=== PATIENT | male | born 1970 | race Caucasian/White ===

== ENCOUNTER 2024-01-18 06:20 | Day surgery (SDC) | payer BC, SELFPAY ==
[2024-01-18 11:16] VITALS: BMI 28.3
[2024-01-18 11:17] VITALS: BMI 28.3
[2024-01-18 11:30] VITALS: BP 130/81
[2024-01-18 14:54] VITALS: BP 108/68
[2024-01-18 15:00] VITALS: BP 114/70
[2024-01-18 15:15] VITALS: BP 122/78
[2024-01-18 15:30] VITALS: BP 114/72
== END 2024-01-18 15:40 | disposition home or self-care (01) ==
LOC: SDS 06:20
PROVIDERS: ATTENDING PHYSICIAN Internal Medicine Gastroenterology
DX: K22.89 Other specified disease of esophagus (principal); K22.82 Esophagogastric junction polyp; K31.89 Other diseases of stomach and duodenum; K31.7 Polyp of stomach and duodenum
CPT/HCPCS: 43251; 43259; 88305

== ENCOUNTER 2024-04-03 22:00 | Emergency (ER) | payer BC, SELFPAY ==
[2024-04-03 22:02] VITALS: BP 138/96
[2024-04-04] MEDS: PERCOCET 5/325 1 TABLET PO (00:32)
[2024-04-04] MEDS: DECADRON 10 MG IV (00:41)
[2024-04-04] MEDS: TORADOL 15 MG IV (00:42)
[2024-04-04] MEDS: VALIUM INJECTION 2 MG IV (00:42)
--- NOTE | 2024-04-04 01:05 | ED.GENMED ---
History of Present Illness
General
Chief Complaint: Back Pain
Source: patient and spouse
Exam Limitations: none
Time Seen by Provider: 04/03/24 23:54
Nursing documentation reviewed up to this point in time: agreed with
History of Present Illness
History of Present Illness:
Patient with history of chronic intermittent low back pain, presents to ED secondary to continual right right lower back pain over the past 1 week. Patient states that his back pain started when he woke up 1 week ago, without any trauma or change
in activities. Patient states that he has had similar symptoms, but never lasted this long. Denies fever or chills. Denies weakness or numbness. Denies difficulty with ambulation. Denies urinary or bowel incontinence. Patient was evaluated by
his primary care physician earlier today and was given prescription for Medrol Dosepak, which he has picked up. However, due to previous history of side effects from steroids, patient has not started his medication. Patient has taken however,
Motrin at home without improvement symptoms.
Past History
Past History
ED Past Medical History: Hypercholesterolemia and Other (Partial thyroidectomy for a nodule)
Social History
Tobacco: Non-smoker
Alcohol: Occasional
Personal:
Family History
Family History: Other (Hyperlipidemia)
Review of Systems
Review of Systems
Allergies reviewed?: Yes
All Other Systems: ROS reviewed and negative except as documented in HPI and ROS
Constitutional: Reports no symptoms; Denies fever
Respiratory: Reports no symptoms
ABD/GI: Reports no symptoms
: Reports no symptoms; Denies incontinence
Musculoskeletal: Reports back pain
Skin: Reports no symptoms
Neurological: Reports no symptoms; Denies weakness or numbness
Phy Exam
Physical Exam
Physical Exam:
Physical Exam
General: moderate painful distress, not acutely ill. afebrile
Head: nc/at. eomi
Neck: supple. no meningeal signs.
Heart: s1/s2 regular rate and rhythm, no murmur.
Lungs: no acute respiratory distress. clear bilaterally
Abdomen: normal bowel sounds. not tender.
Back: no midline tenderness to palpation. mild diffuse lower back tenderness noted. negative straight leg raise test.
Neuro: alert and oriented x 3. no focal neurological deficits. normal gait.
Skin: no rash
Psychiatric: well kept. interactive and cooperative
Extremities: no edema. no calf tenderness.
Course
Orders/Labs/Results
Orders:
Orders
04/04/24 00:14
Dexamethasone Sod Phosphate [Decadron] 10 mg IV NOW STA
Ketorolac [Toradol] 15 mg IV NOW STA
Oxycodone/Acetaminophen [Percocet 5/325] 1 tablet PO NOW STA
diazePAM [Valium Injection] 2 mg IV NOW STA
CR Lumbar Spine Comp Min 4 Vw* Urgent
Comment:
Reason For Exam: pain at level of L3-4
Vital Signs
Initial and Last Documented VS:
Initial Vital Signs
Temp Pulse Resp BP Pulse Ox
98.8 F 95 16 138/96 99
04/03/24 22:02 04/03/24 22:02 04/03/24 22:02 04/03/24 22:02 04/03/24 22:02
Last Documented Vital Signs
Temp Pulse Resp BP Pulse Ox
98.8 F 83 18 139/85 99
04/03/24 22:02 04/04/24 01:15 04/04/24 01:15 04/04/24 01:15 04/03/24 22:02
MDM/Problems Addressed
MDM/Problems Addressed:
X-ray: No acute findings. The patient reports significant improvement in symptoms after treatment. Patient states that he feels comfortable going home at this time. The patient is afebrile, hemodynamically stable, and neurologically intact, and
noted to ambulate with steady gait, at time of discharge, to the care of his . Patient will be given prescription for short course of medication, i.e. Flexeril/Percocet, as well as 1 additional dose of Decadron, to be used as needed, if
symptoms persist after 48 hours. In addition, recommended close follow-up with PCP for reevaluation, including potential MRI spine as an outpatient, if his symptoms persist.
*Critical Care Note
Total Time (30-74mins, 75-104mins- exclusive of procedures): Not Applicable
ED Attending Note
-
Portions of this chart may have been created with voice recognition software.� Occasional wrong word or��sound alike� substitutions may have occurred due to the inherent limitations of voice recognition software.
Discharge Plan
Departure
Patient Disposition: Home (Routine Discharge)
Date of Disposition: 04/04/24
Time of Disposition: 01:05
Patient with high blood pressure during this ER visit?: Yes
Condition: Good
Discharge Problem:
Back pain
Instructions: Low Back Pain (DC)
Prescriptions:
New
cyclobenzaprine 10 mg tablet
10 mg PO TIDPRN PRN (Reason: muscle spasm) Qty: 20 0RF
oxycodone-acetaminophen [Percocet] 5-325 mg Tablet
1 tab PO Q6HPRN PRN (Reason: pain) Qty: 12 0RF
dexamethasone 2 mg tablet
10 mg PO DAILY Qty: 5 0RF
No Action
atorvastatin 10 MG tablet
20 mg PO DAILY
omeprazole 20 mg Capsule,Delayed Release(Dr/Ec)
20 mg PO DAILY
escitalopram oxalate 10 mg Tablet
10 mg PO DAILY
Referrals:
Geovany Baca DO [Family Provider] -
Activity Restrictions/Additional Instructions:
As discussed, please follow-up with your primary care physician for further evaluation and treatment, including potential MRI spine as an outpatient, if symptoms persist. Your prescriptions have been sent electronically to [facility] pharmacy in
[place]. Strongly recommend applying warm compress to affected area, along with taking prescribed medications, especially narcotic medication, only at home, as needed.
Interventions
Interventions:
*Risk Screen - Suicide Last Done: 04/04/24 01:16
*General Assessment Last Done: 04/03/24 22:02
*Neglect/Abuse Screening Last Done: 04/03/24 23:05
*ED COVID-19 Vaccine History Last Done: 04/03/24 22:02
*Nursing Disposition Last Done: 04/04/24 01:16
ED-Musculoskeletal Assessment Last Done: 04/03/24 23:05
Discharge Date and Time
Discharge Date/Time: 04/04/24 01:16
Print Language: MAURITIAN
[2024-04-04 01:15] VITALS: BP 139/85
== END 2024-04-04 01:16 | disposition home or self-care (01) ==
LOC: EMR 22:00
PROVIDERS: EMERGENCY PHYSICIAN Emergency Medicine; FAMILY PHYSICIAN Family Medicine
DX: M54.50 Low back pain, unspecified (principal); R03.0 Elevated blood-pressure reading, without diagnosis of hypertension
CPT/HCPCS: 99284; 96374; 96375 ×2; 72110